=== PATIENT | male | born 1940 | race Caucasian/White ===

== ENCOUNTER 2021-12-03 18:02 | Observation (INO) ==
[2021-12-03 20:17] LABS: Basophils # 0.1 K/mcL (0.0-0.2); Basophils % 0.5 %; Eosinophils # 0.2 K/mcL (0.0-0.6); Eosinophils % 1.7 %; Hematocrit 46.1 % (37.5-50.1); Hemoglobin 14.9 g/dL (12.9-16.9); Immature Granulocytes % 0.2 % (0-4); Lymphocytes # 2.6 K/mcL (0.6-4.6); Lymphocytes % 26.4 %; Mean Corpuscular HGB Conc 32.3 g/dL (31.6-35.5); Mean Corpuscular Hemoglobin 30.3 pg (28.0-33.3); Mean Corpuscular Volume 93.9 fL (83.0-100.0); Mean Platelet Volume 11.4 fL (9.4-12.4); Monocytes # 0.8 K/mcL (0.0-1.3); Monocytes % 7.7 %; Neutrophils # 6.1 K/mcL (1.6-8.9); Platelet Count 230 K/mcL (140-400); Red Blood Count 4.91 M/mcL (4.19-5.50); Red Cell Distribution Width 14.1 % (11.5-14.5); Segmented Neutrophils % 63.5 %; White Blood Count 9.7 K/mcL (4.3-11.1)
[2021-12-03 20:27] LABS: INR 1.8; Prothrombin Time 19.7 Seconds (9.4-12.1)
[2021-12-03 20:37] LABS: Albumin 3.4 g/dL (3.5-5.7); Bilirubin,Total 0.9 mg/dL (0.3-1.0); Calcium 9.4 mg/dL (8.6-10.3); Globulin 3.3 g/dL (2.4-3.5); Potassium 4.5 mEq/L (3.5-5.1); Total Protein 6.7 g/dL (6.4-8.9)
[2021-12-03] MEDS ORDERED: Pantoprazole 40 MG VIAL IVP ONE (22:10)
[2021-12-03] MEDS ORDERED: Ondansetron 4 MG/2 ML VIAL IVP PRN (22:19)
[2021-12-03] MEDS ORDERED: Naloxone 0.4 MG/ML INJ IVP PRN (22:19)
[2021-12-03] MEDS ORDERED: Melatonin 3 MG TABLET PO PRN (22:19)
[2021-12-03] MEDS: Pantoprazole 40 MG in 0.9 % Sodium Chloride Mini Bag 100 ML IVC SCH (22:32)
[2021-12-03] MEDS ORDERED: D5% in Water 1,000 ML IVC PRN (23:43)
[2021-12-03] MEDS ORDERED: *HR* Dextrose 50 % in Water (Syg) 50 ML SYRINGE IVP PRN (23:43)
[2021-12-03] MEDS ORDERED: Dextrose Gel 15 GM/37.5 ML TUBE PO PRN ×2 (23:43)
[2021-12-04] MEDS: Insulin LISPRO 300 UNITS/3 ML VIAL SUBQ SCH ×3 (01:27→11:33)
[2021-12-04 01:33] LABS: Hematocrit 43.2 % (37.5-50.1); Hemoglobin 13.8 g/dL (12.9-16.9); Mean Corpuscular HGB Conc 31.9 g/dL (31.6-35.5); Mean Corpuscular Hemoglobin 30.1 pg (28.0-33.3); Mean Corpuscular Volume 94.1 fL (83.0-100.0); Mean Platelet Volume 11.3 fL (9.4-12.4); Platelet Count 205 K/mcL (140-400); Red Blood Count 4.59 M/mcL (4.19-5.50); Red Cell Distribution Width 14.1 % (11.5-14.5); White Blood Count 8.5 K/mcL (4.3-11.1)
[2021-12-04 01:48] LABS: BUN/Creatinine Ratio 25 (6-26); Blood Urea Nitrogen 34 mg/dL (8-23); Carbon Dioxide 28 mEq/L (23-29); Chloride 101 mEq/L (98-107); Glucose 79 mg/dL (70-105); Osmolality,Calculated 291 (280-300); Phosphorous 3.9 mg/dL (2.7-4.5); Potassium 4.2 mEq/L (3.5-5.1); Sodium 137 mEq/L (136-145); eGFR For African Americans > 60 (> 60); eGFR For Non-African Americans 50 (> 60)
[2021-12-04] MEDS: Pantoprazole 40 MG in 0.9 % Sodium Chloride Mini Bag 100 ML IVC SCH ×3 (03:23→14:27)
[2021-12-04] MEDS ORDERED: lisinopriL 5 MG TABLET PO SCH (09:00)
[2021-12-04] MEDS ORDERED: Furosemide 40 MG TABLET PO SCH (09:00)
[2021-12-04] MEDS: Gabapentin 100 MG CAPSULE PO SCH (09:11)
[2021-12-04 11:11] LABS: INR 1.4
[2021-12-04] MEDS ORDERED: *HR* Propofol 200 MG/20 ML VIAL IVP ONE (12:39)
[2021-12-04] MEDS ORDERED: Lidocaine -MPF 2% 2 ML VIAL ONE ×2 (12:39→12:41)
[2021-12-04] MEDS ORDERED: SODIUM CHLORIDE/NAHCO3/KCL/PEG 4,000 ML SOLN.RECON PO ONE (17:00)
[2021-12-05] MEDS: Insulin LISPRO 300 UNITS/3 ML VIAL SUBQ SCH ×3 (00:02→18:29)
[2021-12-05] MEDS: Pantoprazole 40 MG in 0.9 % Sodium Chloride Mini Bag 100 ML IVC SCH ×2 (00:20→05:27)
[2021-12-05 01:33] LABS: Basophils % 0.5 %; Eosinophils # 0.3 K/mcL (0.0-0.6); Eosinophils % 3.4 %; Hematocrit 42.8 % (37.5-50.1); Hemoglobin 13.8 g/dL (12.9-16.9); Immature Granulocytes % 0.2 % (0-4); Lymphocytes # 2.3 K/mcL (0.6-4.6); Lymphocytes % 27.2 %; Mean Corpuscular HGB Conc 32.2 g/dL (31.6-35.5); Mean Corpuscular Hemoglobin 29.7 pg (28.0-33.3); Mean Platelet Volume 11.1 fL (9.4-12.4); Monocytes # 0.7 K/mcL (0.0-1.3); Monocytes % 7.7 %; Neutrophils # 5.2 K/mcL (1.6-8.9); Platelet Count 232 K/mcL (140-400); Red Blood Count 4.65 M/mcL (4.19-5.50); Red Cell Distribution Width 13.9 % (11.5-14.5); White Blood Count 8.5 K/mcL (4.3-11.1)
[2021-12-05 01:51] LABS: BUN/Creatinine Ratio 22 (6-26); Blood Urea Nitrogen 29 mg/dL (8-23); Calcium 8.7 mg/dL (8.6-10.3); Carbon Dioxide 26 mEq/L (23-29); Chloride 100 mEq/L (98-107); Glucose 97 mg/dL (70-105); Osmolality,Calculated 284 (280-300); Potassium 3.9 mEq/L (3.5-5.1); Sodium 134 mEq/L (136-145); eGFR For African Americans > 60 (> 60); eGFR For Non-African Americans 51 (> 60)
[2021-12-05] MEDS: Gabapentin 100 MG CAPSULE PO SCH (08:45)
[2021-12-05] MEDS ORDERED: Lidocaine -MPF 2% 2 ML VIAL ONE (12:59)
[2021-12-05] MEDS: Apixaban 5 MG TABLET PO SCH (21:02)
[2021-12-05] MEDS ORDERED: Nystatin POWDER 30 GM BOTTLE TP SCH (23:30)
[2021-12-06 05:06] LABS: Hematocrit 39.8 % (37.5-50.1); Hemoglobin 12.8 g/dL (12.9-16.9)
[2021-12-06 08:25] VITALS: PULSE 69; O2SAT 93
[2021-12-06] MEDS: Apixaban 5 MG TABLET PO SCH (08:30)
[2021-12-06] MEDS: Gabapentin 100 MG CAPSULE PO SCH (08:30)
[2021-12-06] MEDS: Insulin LISPRO 300 UNITS/3 ML VIAL SUBQ SCH (08:33)
[2021-12-06 12:22] VITALS: BP 139/87; TEMP 98.5
== END 2021-12-06 15:42 | disposition home or self-care (01) ==
LOC: 3ANU 18:02 → EMEROOARM 18:02 → SUATTDRO 22:20 → 3ANU 23:15
PROVIDERS: ADMIT Family Medicine; ATTEND Internal Medicine